=== PATIENT | female | born 1970 | race Two or more races ===

== ENCOUNTER → 2024-04-21 | Outpatient (CLI) | payer MEDICAID | END | disposition home or self-care (01) | LOC: XYW 08:44 | PROVIDERS: ATTEND Student in an Organized Health Care Education/Training Program | DX: I51.89 Other ill-defined heart diseases (principal); R06.02 Shortness of breath | CPT/HCPCS: 93306 ==

== ENCOUNTER → 2024-07-02 | Outpatient (CLI) | payer MEDICAID ==
[~2024-07-02] VITALS: Ht 142.2 cm; Wt 47.6 kg
== END | disposition home or self-care (01) ==
LOC: XY 08:41
PROVIDERS: ATTEND Student in an Organized Health Care Education/Training Program
DX: R00.2 Palpitations (principal)
CPT/HCPCS: 78452; 93017; A9500